=== PATIENT | female | born 1990 | race Caucasian/White ===

== ENCOUNTER 2022-09-04 08:44 | Emergency (ER) | payer OTHER, SELFPAY ==
--- NOTE | ~2022-09-04 | XR_ITS ---
EXAMINATION: XR chest 1V portable DATE: 09/04/2022 10:19 INDICATION: Shortness of breath. Chest pain. TECHNIQUE: A single frontal view of the chest was obtained. COMPARISON: Chest 2 views 06/09/2018 FINDINGS: The chest demonstrates clear lungs without pneumonia, pleural effusion, or pneumothorax. Th e heart size is normal. IMPRESSION: 1. No acute cardiopulmonary disease. Reviewed, dictated and finalized at location B.
--- NOTE | ~2022-09-04 | CT_ITS ---
EXAMINATION: CT brain wo con DATE: 09/04/2022 10:18 INDICATION: Lightheadedness. TECHNIQUE: Computed tomography (CT) of the head was performed without intravenous contrast. The mA wa s adjusted according to patient size. Iterative reconstruction technique was employed. The dose-lengt h product was 605.33 mGy-cm. COMPARISON: None FINDINGS: There is no intracranial hemorrhage, acute infarction, or abnormal intracranial mass lesion . The ventricles are normal in size. The orbits are normal. The paranasal sinuses are clear. The mast oid air cells are normal. IMPRESSION: 1. Normal brain. Reviewed, dictated and finalized at location B. IMPRESSION: 1. Normal brain.
[2022-09-04 08:52] VITALS: BP 118/95; PULSE 122; RESP 16; TEMP 36.3; O2SAT 100
--- NOTE | 2022-09-04 09:13 | ECG_ITS ---
Measurements Intervals [place] Rate: 87 P: 55 SD: 141 QRS: 81 QRSD: 94 T: 69 QT: 346 QTc: 417 Interpretive Statements SINUS RHYTHM WITH SINUS ARRHYTHMIA NORMAL ELECTROCARDIOGRAM NO PREVIOUS ECG AVAILABLE FOR COMPARISON Electronically Signed On 09-04-2022 14:02:02 CDT by Eugene Nazario M.D.
--- NOTE | 2022-09-04 09:21 | ED.GENADULT ---
HPI - General Adult General Chief complaint: Anxiety Stated complaint: breathing trouble Time Seen by Provider: 09/04/22 08:48 Source: patient, family and RN notes reviewed Mode of arrival: wheelchair Limitations: no limitations History of Present Illness MD complaint: recurrent, increasing SOB x 2 days. also mild chest pain and overwhelming Onset (ago): day(s) (2) Location: head and chest Radiation: non-radiation Severity: moderate Severity scale (1-10): 6 Quality: dull Pain Consistency: constant Relieving factors: none Exacerbating factors: none Associated symptoms: chest pain and shortness of breath Related Data Home Medications Medication Instructions Recorded Confirmed cephalexin 500 mg capsule 500 mg PO QID 09/04/22 09/04/22 nortriptyline 25 mg capsule 25 mg PO HS 09/04/22 09/04/22 Allergies Allergy/AdvReac Type Severity Reaction Status Date / Time No Known Allergies Allergy Verified 09/04/22 08:55 Review of Systems Review of Systems: All systems reviewed & are unremarkable except as noted in HPI and below Constitutional: Constitutional: Reports no additional constitutional complaints Eyes: Eyes: Reports no additional eye complaints ENT: Reports system reviewed and no additional complaints, except as documented Cardiovascular: Cardiovascular: Reports no additional cardiovascular complaints Respiratory: Respiratory: Reports dyspnea Gastrointestinal: Gastrointestinal: Reports no additional gastrointestinal complaints Genitourinary: Genitourinary: Reports no additional female genitourinary complaints Musculoskeletal: Musculoskeletal: Reports no additional musculoskeletal complaints Integumentary/Breasts: Skin/Breast: Reports system reviewed and no additional complaints, except as docu Neurologic: Reports system reviewed and no additional complaints, except as documented, Reports headache(s) and Reports weakness Psychiatric: Psychiatric: Reports no additional psychiatric complaints Endocrine: Endocrine: Reports no additional endocrine complaints Hematologic/Lymphatic: Hematologic/Lymphatic: Reports no additional hematologic/lymphatic complaints Allergic/Immunologic: Allergic/Immunologic: Reports no additional allergic/immunologic complaints PMFSH Social History Social History Substance use type: does not use Exam Const: General: healthy appearing, no acute distress and well nourished Nutritional Appearance: well nourished Orientation/consciousness: patient oriented x3 Limitations: no limitations HENMT: Head: normal to inspection Ears: external ears normal, TM's normal bilaterally and EAC's normal Face/Nose/Sinus: Normal external nose present, Normal nares present, normal facial exam and sinuses nontender Face and sinus: normal facial exam and sinuses nontender Mouth: Yes Normal oral and palatal mucosa present and Yes moist mucous membranes Teeth and gingiva: dentition normal Throat: posterior oropharynx normal Eyes: Conjunctivae: conjunctivae normal Pupils: Equal, round and reactive pupils present EOM: EOMs intact bilaterally Neck: Neck: normal visual inspection, no lymphadenopathy and no meningeal signs Chest: Chest palpation & inspection: normal inspection of the chest Resp: Effort & Inspection: normal respiratory effort Auscultation: clear to auscultation bilaterally Cardio: Rate: regular rate Rhythm: regular rhythm GI: GI Palp: Yes Soft to palpation and No Tenderness to palpation present (GI) Auscultation: normal bowel sounds : General: Yes bladder normal to palpation and Yes no CVA tenderness Bimanual exam- vagina & uterus: bladder normal to palpation Back/Spine/Pelvis: Back: no CVA tenderness Skin: General skin exam: normal color Rashes: no rashes Wounds: no wounds Neuro: General: patient oriented x3, moves all extremities, no meningeal signs, no focal motor deficits and CN's II-XI intact bilaterally
[2022-09-04 09:38] LABS: Appearance Urine Clear (Clear); Bilirubin Urine Negative (Negative); Blood Urine Negative (Negative); Glucose Urine UA Negative (Negative); Ketones Urine Trace (Negative); Leukocyte Esterase Ur 1+ (Negative); Nitrate Urine Negative (Negative); Protein Urine Negative (Negative); Specific Grav Ur <= 1.005 (1.010-1.020); Urobilinogen Urine 0.2 mg/dL (0.2-1.0)
[2022-09-04 09:43] LABS: Add Urine Microscopic? YES; Bacteria Urine Trace /hpf; Color Urine Light Yellow (Yellow); RBC Urine None seen /hpf (0-2); Squamous Epithelial Cell Urine Moderate /hpf (Few); WBC Urine 0-3 /hpf (0-3)
[2022-09-04 09:48] LABS: Amphetamine Screen Urine Negative (Negative); Barbiturate Screen Urine Negative (Negative); Benzodiazepines Screen Urine Negative (Negative); Cannabinoid Screen Urine Negative (Negative); Cocaine Screen Urine Negative (Negative); Methadone Screen Urine Negative (Negative); Opiate Screen Urine Negative (Negative); Phencyclidine Screen Urine Negative (Negative)
[2022-09-04 09:51] LABS: Base Excess ABG 2.2 mmol/L (0-2); HCO3 ABG 20.6 mmol/L (23-29); Oxygen Content ABG 19.4 %vol (16.0-22.0); Oxygen Saturation ABG 98.5 % (95-97); Oxyhemoglobin 97.8 % (94-100); PO2 ABG 125.1 mmHg (80-90)
[2022-09-04] MEDS: ASPIRIN 325 MG ENTERIC TABLET PO (09:51)
[2022-09-04 09:52] LABS: Basophils Absolute Auto 0.05 K/mm3 (0.00-0.10); Basophils Percent Auto 0.7 % (0.0-1.0); Eosinophils Absolute Auto 0.09 K/mm3 (0.02-0.50); Eosinophils Percent Auto 1.3 % (1.0-6.0); Hematocrit 38.9 % (35.0-49.0); Hemoglobin 12.8 g/dL (12.0-15.0); Immature Granulocyte Absolute 0.02 K/mm3 (0.00-0.00); Immature Granulocyte Percent A 0.3 % (0.0-0.0); Lymphocytes Absolute Auto 1.78 K/mm3 (1.10-4.50); Lymphocytes Percent Auto 26.4 % (18.0-42.0); Mean Corpuscular HGB Conc 32.9 g/dL (32.0-36.0); Mean Corpuscular Hemoglobin 26.9 pg (27.0-31.0); Mean Corpuscular Volume 81.9 fL (78.0-102.0); Mean Platelet Volume 10.9 fl (9.2-11.8); Monocytes Percent Auto 5.9 % (2.0-11.0); Neutrophils Absolute Auto 4.4 K/mm3 (1.7-7.2); Neutrophils Percent Auto 65.4 % (50.0-70.0); Platelet Count Result 248 K/mm3 (150-420); Red Blood Count 4.75 M/mm3 (4.20-5.40); Red Cell Distribution Width 13.5 % (11.6-14.4); White Blood Count 6.7 K/mm3 (4.8-10.8)
[2022-09-04 09:54] LABS: pH ABG 7.65 (7.35-7.45)
[2022-09-04 09:55] LABS: Device ROOM AIR; Modified Allen's Test Pass; PCO2 ABG 19.1 mmHg (35-45); Site Drawn RIGHT RADIAL
[2022-09-04 10:11] LABS: SPREG INTERNAL CONTROL Positive; Serum Qual hCG Negative
[2022-09-04 10:20] LABS: Troponin I < 4.0 ng/L (0.00-60.4)
[2022-09-04 10:23] LABS: Alanine Aminotransferase 24 U/L (14-59); Alkaline Phosphatase 87 U/L (46-116); Anion Gap 11 mmol/L (8-16); Aspartate Amino Transferase 18 U/L (15-37); Bilirubin,Total 0.7 mg/dL (0.00-1.00); Blood Urea Nitrogen 8 mg/dL (7-18); Carbon Dioxide 24 mmol/L (21-32); Chloride 105 mmol/L (98-108); Estimated Glomerular Filt Rate > 60; Glucose 86 mg/dL (70-99); Osmolality Calculated 287 mOsm/kg (285-295); Potassium 3.1 mmol/L (3.5-5.1); Sodium 140 mmol/L (136-145); Total Protein 7.9 g/dL (6.4-8.2)
[2022-09-04 10:26] LABS: Ethanol < 3 mg/dL (0-6)
[2022-09-04 10:27] LABS: Lactic Acid Reflex 2.2 mmol/L (0.4-2.0)
[2022-09-04] MEDS: cefTRIAXone 1 GM, LIDOCAINE HCL 1% LOCAL INJ 2.1 ML IM (11:10)
[2022-09-04] MEDS: POTASSIUM CHLORIDE 20 MEQ TABLET 40 MEQ PO (11:10)
[2022-09-04 11:36] VITALS: BP 118/72; PULSE 100; RESP 16; O2SAT 99
[2022-09-04 11:37] VITALS: TEMP 36.8
== END 2022-09-04 11:45 | disposition home or self-care (01) ==
PROVIDERS: Emergency Provider Emergency Medicine; PCP Internal Medicine
DX: R06.4 Hyperventilation (principal); N39.0 Urinary tract infection, site not specified; E87.6 Hypokalemia
CPT/HCPCS: 36415; 36600; 70450; 71045; 80053; 80307; 81001; 82805; 83605; 84484; 84703; 85025; 93005; 96372; 99284; A9270; J0696

== ENCOUNTER 2022-10-16 08:21 | Outpatient (CLI) | payer OTHER, SELFPAY | END 2022-10-16 08:22 | disposition home or self-care (01) | LOC: CHSCARD 08:22 | PROVIDERS: PCP Internal Medicine; Visit Provider Internal Medicine | DX: R06.00 Dyspnea, unspecified (principal) | CPT/HCPCS: 94060; 94726; 94729 ==

== ENCOUNTER 2025-11-24 15:45 | Emergency (ER) | payer OTHER, SELFPAY ==
[2025-11-24 16:11] VITALS: BP 116/78; PULSE 85; RESP 16; TEMP 36.9; O2SAT 99
--- NOTE | 2025-11-24 16:12 | ED_ITS ---
HPI - Head Injury General Chief complaint: Head Injury Stated complaint: possible concussion/hit head hard big lump Time Seen by Provider: 11/24/25 16:12 Source: patient Mode of arrival: ambulatory Limitations: no limitations History of Present Illness HPI Narrative: 35 y/o female presented for c/o head pain after injury 1 hour [employer]. Says she fell while roller skating today, landing first on her tailbone, then hitting her head on the floor at site of ponytail. Says she 'saw static' and felt dizzy, which is now resolved. reporting some neck pain. Applied ice packs after injury. Denies vision changes, nausea/vomiting, confusion or light sensitivity. Has not taken anything for pain. Related Data Home Medications ?Medication ?Instructions ?Recorded ?Confirmed ?Last Taken ?Type cephalexin 500 mg capsule 500 mg PO QID 09/04/2209/04 Unknown History nortriptyline 25 mg capsule 25 mg PO HS 09/04/2209/04 Unknown History Allergies Allergy/AdvReac Type Severity Reaction Status Date / Time No Known Allergies Allergy Verified 09/04/22 08:55 Review of Systems Review of Systems: per HPI All systems reviewed & are unremarkable except as noted in HPI and below PMFSH Social History Social History Substance use type: does not use Comments At time of signature, I have reviewed and agree with nursing past medical, surgical, social and family history unless otherwise noted. Please see nursing chart for further information. There is no relevant family history pertinent to the presenting complaint Exam Narrative: GENERAL: Well-appearing, and in no acute distress. HEAD: mild contusion to posterior scalp EYES: EOMI. PERRLA. No redness or drainage. Conjunctivae normal. ENT: Mucous membranes pink and moist. NECK: Normal AROM. tender to neck muscles,no vpt. No lymphadenopathy. CHEST: No respiratory distress. Clear to auscultation. HEART: Regular rate and rhythm. No murmur appreciated. Normal peripheral pulses. MUSCULOSKELETAL: No bony tenderness. EXTREMITIES: Normal range of motion. No edema. SKIN: Warm, dry, no rash. Capillary refill normal. Normal skin turgor. NEURO: No focal deficits. Alert and oriented x3. Gait steady. PSYCH: Normal affect. Course Course Level of Care: Express Care Visit MDM MDM Narrative Medical decision making narrative: Discussed physical exam findings most c/w head contusion and cervical strain. Advised no indication for imaging based on mechanism of injury. Reviewed RX, and Advised supportive measures and signs/symptoms to go to the ER. Pt is appropriate for outpt treatment and f/u. Differential Diagnosis Differential Diagnosis: concussion, contusion, subdural hematoma, cervical strain Discharge Plan Discharge Clinical Impression: Contusion of head, Neck strain Patient Disposition: Home Condition: Stable Instructions: Cervical Strain (ED), Concussion (ED) Additional Instructions: Rest in a cool dark room Avoid screens (computers, tablets, phones, television) Drink plenty fluids. Tylenol 1000mg every 8 hours as needed You can alternate with ibuprofen 600mg Alternate ice/heat to the site. Lidocaine or salon pas pain patch or use pain cream like icy/hot or biofreeze to the neck as needed. Patient Language: Kiswahili Prescriptions: New cyclobenzaprine 10 mg tablet 10 mg PO TID PRN (Reason: muscle spasm) Qty: 6 0RF ibuprofen 600 mg tablet 600 mg PO TID PRN (Reason: pain) Qty: 14 0RF No Action nortriptyline 25 mg capsule 25 mg PO HS cephalexin 500 mg capsule 500 mg PO QID cephalexin 500 mg capsule 500 mg PO Q6H Qty: 40 0RF potassium chloride 20 mEq tablet extended release 20 meq PO ONCE Qty: 14 0RF Follow-up/Referrals: James Avila MD [Primary Care Provider, Internal Medicine] Time of Disposition: 16:22
== END 2025-11-24 16:26 | disposition home or self-care (01) ==
PROVIDERS: Emergency Provider Nurse Practitioner Family; PCP Internal Medicine
DX: S00.03XA Contusion of scalp, initial encounter (principal); S16.1XXA Strain of muscle, fascia and tendon at neck level, initial encounter; W19.XXXA Unspecified fall, initial encounter; Y93.51 Activity, roller skating (inline) and skateboarding
CPT/HCPCS: 99213; G0463